=== PATIENT | male | born 2000 | race Two or more races ===

== ENCOUNTER 2025-01-06 15:29 | Emergency (ER) | payer SELFPAY ==
[~2025-01-06] VITALS: Ht 172.7 cm; Wt 76.0 kg
[2025-01-06 15:41] VITALS: O2SAT 99
[2025-01-06] MEDS ORDERED: TOPUD PO (18:56)
[2025-01-06] MEDS ORDERED: IBUP-2028 MT (18:56)
[2025-01-06] MEDS: IBUPROFEN 400MG TABLET PO ONE (19:08)
[2025-01-06] MEDS: ACETAMINOPHEN 325MG TABLET PO ONE (19:08)
[2025-01-06 19:25] VITALS: BP 128/88; PULSE 72; RESP 14; TEMP 36.3; O2SAT 99
== END 2025-01-06 19:30 | disposition home or self-care (01) ==
LOC: ER 15:29
DX: S42.001A Fracture of unspecified part of right clavicle, initial encounter for closed fracture (principal); V00.131A Fall from skateboard, initial encounter; Y93.51 Activity, roller skating (inline) and skateboarding; Y92.89 Other specified places as the place of occurrence of the external cause; Y99.8 Other external cause status
CPT/HCPCS: 73000; 99283